=== PATIENT | female | born 1965 ===

== ENCOUNTER 2017-02-26 18:06 | Emergency (ER) | payer MEDICAID ==
[2017-02-26 18:12] VITALS: BP 139/81; PULSE 73; RESP 20; TEMP 97.9; O2SAT 96
--- NOTE | 2017-02-26 18:57 | C.PDOC ---
History Of Present Illness 51 y/o female with multiple medical problems presents to the ED with complaints of right lower back pain which onset today after doing laundry, pain radiates down right leg with tingling sensation. Pt denies heavy lifting. She took 1 Aleve at 1400 without improvement. Denies numbness, weakness, saddle anesthesia , fever, chills, bladder or bowel dysfunctions, or any other complaints. No history of back problems. Time Seen by Provider: 02/26/17 18:23 Chief Complaint (Nursing): Back Pain History Per: Patient History/Exam Limitations: no limitations Onset/Duration Of Symptoms: Hrs Current Symptoms Are (Timing): Still Present Quality Of Discomfort: "Pain" Severity: Moderate Previous Symptoms: None Associated Symptoms: None Recent travel outside of the [place]: No Past Medical History Reviewed: Historical Data, Nursing Documentation, Vital Signs Vital Signs: Last Vital Signs Temp 97.9 F 02/26/17 18:10 Pulse 73 02/26/17 18:10 Resp 20 02/26/17 18:10 BP 139/81 02/26/17 18:10 Pulse Ox 96 02/26/17 21:23 - Medical History PMH: Hypothyroidism, Kidney Stones, Chronic Kidney Disease Family History: States: Unknown Family Hx - Social History Hx Alcohol Use: No Hx Substance Use: No - Immunization History Hx Tetanus Toxoid Vaccination: Yes Hx Influenza Vaccination: Yes Hx Pneumococcal Vaccination: Yes Review Of Systems Constitutional: Negative for: Fever, Chills Musculoskeletal: Positive for: Back Pain (right sided, radiating down right leg) Neurological: Negative for: Weakness, Numbness Physical Exam - Physical Exam Appears: Non-toxic, No Acute Distress Skin: Warm, Dry, No Rash Head: Atraumatic, Normacephalic Neck: Normal, Normal ROM, No Midline Cervical Tenderness, Supple Chest: Symmetrical Cardiovascular: Rhythm Regular, No Murmur Respiratory: Normal Breath Sounds, No Rales, No Rhonchi, No Wheezing Back: Vertebral Tenderness (lumbar), Paraspinal Tenderness (right lumbar) Extremity: Normal ROM Extremity: Bilateral: Atraumatic Neurological/Psych: Oriented x3, Normal Speech, Normal Motor, Normal Sensation ED Course And Treatment O2 Sat by Pulse Oximetry: 96 (room air) Pulse Ox Interpretation: Normal Progress Note: Plan: XR lumbar, toradol Medical Decision Making Medical Decision Making: pt still in pain after toradol, muscle relaxant ordered. no fx noted on lumbar xray. pt to be discharged with flexeril Disposition Counseled Patient/Family Regarding: Diagnosis, Need For Followup, Rx Given - Disposition Referrals: Sandra Byrd MD [Medical Doctor] - Disposition: HOME/ ROUTINE Disposition Time: 21:19 Condition: STABLE Additional Instructions: Warm or cold compresses to affected area several times a day. Take muscle relaxant three times a day- makes you sleepy so no cooking, operating machinery , or driving, Take 2 tablets of over the counter aleve twice a day. Follow up with your pmd tomorrow. Return to ER for any worsening symptoms., Prescriptions: Cyclobenzaprine [Cyclobenzaprine HCl] 10 mg PO Q8 #9 tab Instructions: Acute Low Back Pain (ED), Back Pain (ED) Print Language: [place] - Clinical Impression Clinical Impression: Low back strain, Lumbar sprain - PA / [employer] / Resident Statement MD/DO has reviewed & agrees with the documentation as recorded. - Scribe Statement The provider has reviewed the documentation as recorded by the Cira Elise All medical record entries made by the Cira were at my direction and personally dictated by me. I have reviewed the chart and agree that the record accurately reflects my personal performance of the history, physical exam, medical decision making, and the department course for this patient. I have also personally directed, reviewed, and agree with the discharge instructions and disposition.
--- NOTE | 2017-02-27 09:23 | RAD ---
Lumbar spine three views History: Back pain. Comparison: None available. Findings: Minimal retrolisthesis of L3 on L4. Multilevel facet hypertrophy and sclerosis. Multilevel anterior osteophyte formation. Impression: Degenerative changes. If pain persists, consider MRI.
== END 2017-02-26 21:28 | disposition home or self-care (01) ==
LOC: C.ER 18:06
DX: S39.012A Strain of muscle, fascia and tendon of lower back, initial encounter (principal); X50.9XXA Other and unspecified overexertion or strenuous movements or postures, initial encounter; Y93.E2 Activity, laundry; Y92.008 Other place in unspecified non-institutional (private) residence as the place of occurrence of the external cause
CPT/HCPCS: 72100; 96372; 99283; J1885